=== PATIENT | male | born 1960 | race Caucasian/White ===

== ENCOUNTER 2023-04-08 15:00 | Outpatient (CLI) | payer BC | END 2023-04-08 15:01 | disposition home or self-care (01) | LOC: CSHMRI 15:00 | PROVIDERS: ATTEND Neurological Surgery | DX: I60.7 Nontraumatic subarachnoid hemorrhage from unspecified intracranial artery (principal); I60.2 Nontraumatic subarachnoid hemorrhage from anterior communicating artery | CPT/HCPCS: 70544 ==

== ENCOUNTER 2024-04-10 13:22 | Outpatient (CLI) | payer MEDICARE, OTHER | END 2024-04-10 13:23 | disposition home or self-care (01) | LOC: CSHMRI 13:22 | PROVIDERS: ATTEND Neurological Surgery | DX: I60.7 Nontraumatic subarachnoid hemorrhage from unspecified intracranial artery (principal); Z95.828 Presence of other vascular implants and grafts | CPT/HCPCS: 70544 ==

== ENCOUNTER 2025-04-05 14:03 | Outpatient (CLI) | payer MEDICARE, OTHER | END 2025-04-05 14:04 | disposition home or self-care (01) | LOC: CSHMRI 14:03 | PROVIDERS: ATTEND Neurological Surgery | DX: I67.1 Cerebral aneurysm, nonruptured (principal); Z95.828 Presence of other vascular implants and grafts | CPT/HCPCS: 70544 ==